=== PATIENT | male | born 1955 | race Caucasian/White ===

== ENCOUNTER → 2016-11-10 | Outpatient (CLI) | payer BC ==
[2016-11-10 10:46] LABS: HEMOGLOBIN A1c 5.4 % (4.8-5.6)
[2016-11-10 10:57] LABS: ALBUMIN 3.8 gm/dl (3.1-4.5); BUN 17 mg/dl (7-24); CARBON DIOXIDE 29 mmol/L (21-32); CHLORIDE 105 mmol/L (98-107); EST GLOM FILT AFRICAN AMERICAN > 60 ml/min; GLUCOSE 95 mg/dL (65-99); POTASSIUM 4.4 mmol/L (3.5-5.1); SGOT/AST 13 IU/L (3-35); SGPT/ALT 22 U/L (12-78); SODIUM 142 mmol/L (136-145)
[2016-11-10 10:59] LABS: ALKALINE PHOSPHATASE 81 U/L (45-117); BILIRUBIN, TOTAL 0.8 mg/dl (0.2-1.0)
== END | disposition home or self-care (01) ==
LOC: LAB 10:04
PROVIDERS: Family Medicine
DX: E55.9 Vitamin D deficiency, unspecified (principal); E74.9 Disorder of carbohydrate metabolism, unspecified

== ENCOUNTER → 2017-06-20 | Outpatient (CLI) | payer BC | END | disposition home or self-care (01) | LOC: RAD 12:43 | DX: M19.011 Primary osteoarthritis, right shoulder (principal); J84.10 Pulmonary fibrosis, unspecified ==